=== PATIENT | female | born 1975 | race Asian ===

== ENCOUNTER 2016-12-24 11:06 | Emergency (ER) | payer OTHER ==
[~2016-12-24] VITALS: Ht 154.9 cm; Wt 68.9 kg
[2016-12-24 11:10] VITALS: BP 148/82; PULSE 84; RESP 20; TEMP 97.9; O2SAT 98
--- NOTE | 2016-12-24 11:10 | NUR ---
ER at bedside examining patient.
--- NOTE | 2016-12-24 11:10 | NUR ---
Pt placed to ER bed 08. Report given to WHITLEY Kelley.
--- NOTE | 2016-12-24 11:15 | NUR ---
PT PRESENST TO ED C/O NASAL CONGESTIONAND COUGH X 1 DAY.PT REPORTS INABILITY TO SLEEP DUE TO CONGESTION.PT DENIES SIGNIFICANT MED HX.
[2016-12-24] MEDS ORDERED: KETOROLAC TROMETHAMINE 30 MG VIAL IVP ONE (11:30)
[2016-12-24] MEDS ORDERED: PROCHLORPERAZINE EDISYLATE 10 MG/2 ML VIAL IVP ONE (11:30)
[2016-12-24] MEDS ORDERED: DEXAMETHASONE SOD PHOSPHATE 10 MG/ML VIAL IVP ONE (11:30)
[2016-12-24] MEDS ORDERED: IPRATROPIUM/ALBUTEROL SULFATE 3 ML AMPUL.NEB ONE (11:52)
--- NOTE | 2016-12-24 11:55 | NUR ---
PT TOLERATED BREATHUING TX AND MEDICATION WELL.
--- NOTE | 2016-12-24 12:37 | NUR ---
INFLUENZA A&B NEG RESULTS GIVEN TO .
--- NOTE | 2016-12-24 12:50 | NUR ---
PT REPORTS EASE IN RESP EFFORT AFTER TX.
--- NOTE | 2016-12-24 13:05 | NUR ---
Patient given written and verbal discharge instructions and verbalizes understanding. ER MD discussed with patient the results and treatment provided. Given copies of tests performed in ER. Patient in stable condition. ID arm band removed. IV catheter removed intact and dressing applied, no active bleeding. Rx of azithromycin,prednisone,promethazine w/codeine given. Patient educated on pain management and to follow up with PMD. Pain Scale 0. Opportunity for questions provided and answered.
[2016-12-24 13:25] VITALS: BP 130/80; PULSE 84; RESP 20; TEMP 98.2; O2SAT 98
== END 2016-12-24 13:25 | disposition home or self-care (01) ==
LOC: SED 11:06
DX: J20.9 Acute bronchitis, unspecified (principal); J32.9 Chronic sinusitis, unspecified
CPT/HCPCS: 36415; 86710; 94640; 96374; 96375; 99284; J0780; J1100; J1885

== ENCOUNTER 2017-02-04 18:31 | Outpatient (CLI) | payer OTHER ==
[2017-02-04 19:03] LABS: BASOPHILS # (AUTO) 0.1 K/uL (0.0-0.2); BASOPHILS % (AUTO) 0.9 % (0.0-2.0); EOSINOPHILS # (AUTO) 0.3 K/uL (0.0-0.4); EOSINOPHILS % (AUTO) 2.4 % (0.0-4.0); HEMATOCRIT 41.9 % (36-48); HEMOGLOBIN 13.9 g/dL (12.0-16.0); LYMPHOCYTES # (AUTO) 3.2 K/uL (1.0-5.5); LYMPHOCYTES % (AUTO) 28.6 % (20.5-51.5); MEAN CORPUSCULAR HEMOGLOBIN 29 pg (27-31); MEAN CORPUSCULAR HGB CONC 33 % (32-36); MEAN CORPUSCULAR VOLUME 87 fL (79.0-98.0); MONOCYTES % (AUTO) 9.1 % (1.7-9.3); NEUTROPHILS # (AUTO) 6.7 K/uL (1.8-7.7); PLATELET COUNT (AUTO) 244 K/uL (130-430); RED BLOOD CELL COUNT(AUTO) 4.84 MIL/uL (4.2-6.2); RED CELL DISTRIBUTION WIDTH 12.4 % (9.0-15.0); WHITE BLOOD COUNT (AUTO) 11.3 K/uL (4.8-10.8)
[2017-02-04 19:23] LABS: BILIRUBIN,URINE NEGATIVE (NEGATIVE); BLOOD, URINE 1+ (NEGATIVE); CLARITY/URINE CLEAR (CLEAR); COLOR,URINE YELLOW (YELLOW); GLUCOSE,URINE NEGATIVE (NEGATIVE); KETONES,URINE NEGATIVE (NEGATIVE); LEUKOCYTE ESTERASE ,URINE NEGATIVE (NEGATIVE); NITRITE, URINE NEGATIVE (NEGATIVE); PROTEIN URINE NEGATIVE (NEGATIVE); UROBILINOGEN,URINE 0.2 (0.2-1.0)
[2017-02-04 19:27] LABS: CHOLESTEROL 266 mg/dL (<200); HCG,QUANTITATIVE 0 mIU/ML (0-6); HDL CHOLESTEROL 63 mg/dL (>55); LDL CHOLESTEROL 173 mg/dL (<100); THYROID STIMULATING HORMONE 1.55 uIu/mL (0.34-4.82); TRIGLYCERIDES 182 mg/dL (30-150)
[2017-02-04 19:33] LABS: C-REACTIVE PROTEIN QUANT < 0.2 mg/dL (0-0.5)
[2017-02-04 19:54] LABS: ERYTHROCYTE SEDIMENTATION RATE 10 MM/HR (0-20)
[2017-02-04 23:03] LABS: BACTERIA,URINE FEW /HPF (None Seen); MUCUS,URINE None Seen /LPF (None Seen); RBC,URINE 0-3 /HPF (0-3); WBC,URINE 0-3 /HPF (0-3)
== END 2017-02-04 19:51 | disposition home or self-care (01) ==
LOC: SLB 18:31
PROVIDERS: ATTEND Internal Medicine
DX: G45.9 Transient cerebral ischemic attack, unspecified (principal)
CPT/HCPCS: 36415; 80061; 81000-TC; 83036; 84443-TC; 84702-TC; 85025; 85651-TC; 86140

== ENCOUNTER 2017-02-06 08:56 | Outpatient (CLI) | payer OTHER | END 2017-02-06 19:33 | disposition home or self-care (01) | LOC: SMI 08:56 → SUS 19:33 | PROVIDERS: ATTEND Internal Medicine | DX: G45.9 Transient cerebral ischemic attack, unspecified (principal) | CPT/HCPCS: 93880 ==

== ENCOUNTER 2017-02-13 07:30 | Outpatient (CLI) | payer OTHER | END 2017-02-13 20:35 | disposition home or self-care (01) | LOC: SRD 07:30 → SMI 20:35 | PROVIDERS: ATTEND Internal Medicine | DX: G45.9 Transient cerebral ischemic attack, unspecified (principal) | CPT/HCPCS: 70551 ==